=== PATIENT | female | born 1960 | race Caucasian/White ===

== ENCOUNTER 2018-05-01 11:41 | Emergency (ER) | payer OTHER ==
[~2018-05-01] VITALS: Ht 165.1 cm; Wt 77.1 kg
[2018-05-01 12:22] LABS: ABSOLUTE BASOPHIL COUNT 0 /CUMM (0.0-0.2); ABSOLUTE EOSINOPHIL COUNT 0.2 /CUMM (0.0-0.7); ABSOLUTE GRANULOCYTE CT 3.8 /CUMM (1.4-6.5); ABSOLUTE LYMPH COUNT 2.4 /CUMM (1.2-3.4); ABSOLUTE MONOCYTE COUNT 0.7 /CUMM (0.10-0.60); BASOPHIL % 0.5 % (0.0-2.0); GRANULOCYTE % 53.2 % (42.2-75.2); HEMATOCRIT 36.7 % (37-47); MEAN CORPUSCULAR HGB 30.9 PG (27.0-31.0); MEAN CORPUSCULAR HGB CONC 33.8 G/DL (33.0-37.0); MEAN CORPUSCULAR VOLUME 91.4 FL (81.0-99.0); MEAN PLATELET VOLUME 8.3 FL (7.4-10.4); PLATELET COUNT 248 /CUMM (130-400); RBC DISTRIBUTION WIDTH 14.1 % (11.5-14.5); RED BLOOD CELL CT 4.02 /CUMM (4.20-5.40); WHITE BLOOD CELL COUNT 7.1 /CUMM (4.8-10.8)
--- NOTE | 2018-05-01 12:37 | ED GENERAL ADULT ---
History of Present Illness General Chief Complaint: Dizziness Stated Complaint: DIZZY, CHEST PRESSURE YESTERDAY Source: patient Exam Limitations: no limitations Allergies Coded Allergies: No Known Allergies (05/01/18) Reconcile Medications Meclizine HCl 25 MG TABLET 1 TAB PO TIDPRN dizziness Triage Note: PT TO ED C/O CHEST PRESSURE THAT WOKE HER UP OUT OF A SLEEP OVER NIGHT. C/O SLIGHT HEADACHE, DIZZINESS NOW. CURRENTLY DENIES CHEST PRESSURE. "I JUST FEEL OFF". Triage Nurses Notes Reviewed? yes HPI: Patient is a 57-year-old female with a past medical history of resolved TIA(2010 ), who presented to the emergency department for chest tightness 2 days and lightheadedness 1 day. Patient was in her usual state of health when the chest tightness woke her up around 2-4 am. Patient says that the chest tightness was like a pressure and went under her left shoulder. Rolling to the other side helped with the pain. She also reports feeling warm and sweaty last night too. Also reports palpitations, possibly because she was nervous due to the chest pain she says. Reports a mild headache this morning. She says she "just doesn't feel right". Reports GERD X 1 week. Tums were very helpful. Does not report SOB/N/V/abd pain/fever/chills/loss of appetite/change in bowel or bladder habits. (Ayala CHAVEZ,Jaki) Vital Signs & Intake/Output Vital Signs & Intake/Output Vital Signs Date Time Temp Pulse Resp B/P B/P Pulse O2 O2 Flow FiO2 Mean Ox Delivery Rate 05/01 1332 98.2 70 20 130/75 98 Room Air 05/01 1145 97.0 59 20 127/72 98 Room Air (Franklin CHAVEZ,Owen Georges) Past History Travel History Traveled to [place] past 21 day No Medical History Any Pertinent Medical History? see below for history Cardiovascular: NONE Surgical History Surgical History: non-contributory, hysterectomy, lumpectomy for left breast mass-benign Psychosocial History What is your primary language Nepalese Tobacco Use: Never used ETOH Use: denies use Illicit Drug Use: denies illicit drug use Family History Hx Contributory? No (Jaki Cai MD) Medical History Any Pertinent Medical History? see below for history Cardiovascular: hypertension, hyperlipidemia Surgical History Surgical History: non-contributory Family History Hx Contributory? No (Owen Reid MD) Review of Systems Review of Systems Constitutional: Reports: see HPI. EENTM: Reports: no symptoms. Respiratory: Reports: no symptoms. Cardiovascular: Reports: see HPI, chest pain. GI: Reports: no symptoms. Genitourinary: Reports: no symptoms. Musculoskeletal: Reports: no symptoms. Skin: Reports: no symptoms. Neurological/Psychological: Reports: no symptoms. Hematologic/Endocrine: Reports: no symptoms. Immunologic/Allergic: Reports: no symptoms. All Other Systems: Reviewed and Negative (Jaki Cai MD) Review of Systems Constitutional: Reports: no symptoms. EENTM: Reports: no symptoms. Respiratory: Reports: no symptoms. Cardiovascular: Reports: see HPI, chest pain. GI: Reports: no symptoms. Genitourinary: Reports: no symptoms. Musculoskeletal: Reports: no symptoms. Skin: Reports: no symptoms. Neurological/Psychological: Reports: see HPI. Hematologic/Endocrine: Reports: no symptoms. Immunologic/Allergic: Reports: no symptoms. All Other Systems: Reviewed and Negative (Owen Reid MD) Physical Exam Physical Exam General Appearance: well developed/nourished, alert, awake Head: atraumatic, normal appearance Eyes: Bilateral: normal appearance, EOMI. Ears, Nose, Throat: normal pharynx, normal ENT inspection, hearing grossly normal Neck: normal inspection, supple Respiratory: normal breath sounds, chest non-tender, no respiratory distress, lungs clear Cardiovascular: regular rate/rhythm, normal peripheral pulses Peripheral Pulses: 4+ radial (R), 4+ radial (L) Gastrointestinal: normal bowel sounds, soft, non-tender Back: normal inspection, normal range of motion Extremities: normal inspection, no edema Neurologic/Psych: no motor/sensory deficits, awake, alert, oriented x 3, normal gait, normal mood/affect, rrts II-XII nml as tested Skin: intact, normal color, warm/dry Core Measures ACS in differential dx? Yes CVA/TIA Diagnosis: No Sepsis Present: No Sepsis Focused Exam Completed? Yes (Jaki Cai MD) Physical Exam General Appearance: well developed/nourished, alert, awake, anxious, mild distress Head: atraumatic, normal appearance Eyes: Bilateral: PERRL, EOMI. Ears, Nose, Throat: normal pharynx, normal ENT inspection, hearing grossly normal Neck: normal inspection, supple, full range of motion Respiratory: normal breath sounds, chest non-tender, no respiratory distress, lungs clear Cardiovascular: regular rate/rhythm, normal peripheral pulses Gastrointestinal: normal bowel sounds, soft, non-tender Back: normal inspection, normal range of motion Extremities: normal inspection, normal capillary refill, normal range of motion, no edema Neurologic/Psych: no motor/sensory deficits, awake, alert, oriented x 3, normal mood/affect, UNSTEADY GAIT Skin: intact, normal color, warm/dry Core Measures ACS in differential dx? No CVA/TIA Diagnosis: No Sepsis Present: No Sepsis Focused Exam Completed? No (Franklin CHAVEZ,Owen Georges) Progress Differential Diagnoses I considered the following diagnoses in my evaluation of the patient: Initial ED EKG: NSR (Ayala CHAVEZ,[facility]) Differential Diagnoses I considered the following diagnoses in my evaluation of the patient: [VERITOG, AMI, ELECTROLYTE ABNORMALITY] Plan of Care: Orders Procedure Date/time Status MISTAKE 05/01 1310 Active TROPONIN LEVEL 05/01 1146 Complete COMPREHENSIVE METABOLIC PANEL 05/01 1146 Complete CBC WITHOUT DIFFERENTIAL 05/01 1146 Complete EKG 05/01 1146 Active Laboratory Tests 05/01/18 1205: Anion Gap 8, Estimated GFR > 60, BUN/Creatinine Ratio 24.3, Glucose 92, Calcium 9.4, Total Bilirubin 0.4, AST 17, ALT 29, Alkaline Phosphatase 111, Troponin I < 0.01, Total Protein 7.1, Albumin 4.2, Globulin 2.9, Albumin/Globulin Ratio 1.4, CBC w Diff NO MAN DIFF REQ, RBC 4.02 L, MCV 91.4, MCH 30.9, MCHC 33.8, RDW 14.1 , MPV 8.3, Gran % 53.2, Lymphocytes % 34.0, Monocytes % 9.3, Eosinophils % 3.0, Basophils % 0.5, Absolute Granulocytes 3.8, Absolute Lymphocytes 2.4, Absolute Monocytes 0.7 H, Absolute Eosinophils 0.2, Absolute Basophils 0 Diagnostic Imaging: Viewed by Me: Radiology Read. Discussed w/RAD: Radiology Read. CXR Impression: PATIENT: DUDLEY SHARMA PRESENT AGE: 57 PATIENT ACCOUNT NO: [id number] : [birth year] LOCATION: [facility] ORDERING PHYSICIAN: Alejandro JACOBS SERVICE DATE: 05/01/18 EXAM TYPE: RAD - XRY-CHEST XRAY, TWO VIEWS EXAMINATION: XR CHEST CLINICAL INFORMATION: Chest pressure last night. Diaphoresis. COMPARISON: None TECHNIQUE: 2 views of the chest were obtained. FINDINGS: The cardiomediastinal silhouette is within normal limits in size. Lungs bilaterally are symmetrically expanded and clear. No focal consolidation, effusion or pneumothorax is seen. Bony structures are unremarkable. IMPRESSION: Unremarkable examination. DICTATED BY: Oanh Thomas MD DATE/TIME DICTATED:05/01/181321 EDGE RUNNER:MONIKA DATE/TIME TRANSCRIBED:05/01/181321 CONFIDENTIAL, DO NOT COPY WITHOUT APPROPRIATE AUTHORIZATION. <Electronically signed in Other Vendor System> SIGNED BY: Oanh Thomas MD 05/01/181325 Initial ED EKG: SR, LAFB, NO ISCHEMIA Comments: Patient feeling much better. Patient able to ambulate with normal gait. Chest pain was last night and there were no episodes today. Her enzymes are negative. Known indication to do a second set at this time. (Franklin CHAVEZ,Owen Georges) Departure Departure Disposition: HOME OR SELF CARE Condition: Stable Clinical Impression Primary Impression: Chest pain with minimal risk for cardiac etiology Referrals: Duy CHAVEZ,Arie Jennings (PCP/Family) Additional Instructions: -Please see your primary care physician and update them about your recent emergency department visit -Please visit your nearest emergency department if you have any of these: Chest pain, shortness of breath, fever, chills, cough, heart racing fast, unsteadiness , dizziness, fall. Departure Forms: Customer Survey General Discharge Information Prescriptions: Current Visit Scripts Meclizine HCl 1 TAB PO TIDPRN #30 TAB (Ayala CHAVEZ,[facility]) Resident Co-Sign Statement Statement: ED Attending supervision documentation- [X] I saw and evaluated the patient. I have also reviewed all the pertinent lab results and diagnostic results. I agree with the findings and the plan of care as documented in the Resident's documentation. [X] I have reviewed the ED Record and agree with the Resident's documentation. [] Additions or exceptions (if any) to the Resident's note and plan are summarized below: [] (Franklin CHAVEZ,Owen Georges) Critical Care Note Critical Care Note Critical Care Time: non-applicable (Jaki Cai MD) Critical Care Note Critical Care Time: non-applicable (Franklin CHAVEZ,Owen Georges) ED Attending Observation Initial Observation Note: I have seen and personally examined DUDLEY SHARMA on 05/01/18 at 1624. I agree with the current emergency department documentation. The disposition (admission or discharge) is uncertain at this time, she needs a period of observation for the following reason(s): [chest pain] The ED Nurse caring for this patient has been personally informed as to what the patient is being observed for. (Ayala CHAVEZ,Jaki)
--- NOTE | 2018-05-01 13:26 | RADIOLOGY REPORT ---
EXAMINATION: XR CHEST CLINICAL INFORMATION: Chest pressure last night. Diaphoresis. COMPARISON: None TECHNIQUE: 2 views of the chest were obtained. FINDINGS: The cardiomediastinal silhouette is within normal limits in size. Lungs bilaterally are symmetrically expanded and clear. No focal consolidation, effusion or pneumothorax is seen. Bony structures are unremarkable. IMPRESSION: Unremarkable examination.
[2018-05-01 13:32] VITALS: BP 130/75
[2018-05-01] MEDS ORDERED: MECLIZINE HCL25 MG PO (14:27)
== END 2018-05-01 15:22 ==
LOC: ERH 11:41
PROVIDERS: Physician Assistant Medical
DX: R07.89 Other chest pain (principal)
CPT/HCPCS: 71046; 93005; 93010